=== PATIENT | male | born 1940 | race Caucasian/White ===

== ENCOUNTER 2017-06-15 09:34 | Inpatient (IN) ==
[2017-06-15 13:26] LABS: Basophils # 0.1 10*3/uL (0.0-0.2); Basophils % 0.4 % (0.0-0.8); Eosinophils # 0.2 10*3/uL (0.0-0.87); Eosinophils % 1.3 % (0.00-10.9); Hematocrit 52.6 VOL% (42.0-52.0); Hemoglobin 17.4 GM/DL (14.0-18.0); Immature Granulocytes Absolute 0.16 #; Lymphocytes # 3.4 10*3/uL (1.4-4.0); Lymphocytes % 21.3 % (21.2-54.2); Mean Corpuscular HGB Conc 33.1 GM/DL (32-36); Mean Corpuscular Hemoglobin 32 PG (27-34); Mean Corpuscular Volume 95.3 FL (87-102); Mean Platelet Volume 10.2 FL (9.6-12.0); Monocytes % 6.5 % (1.7-12.7); Neutrophils % 69.5 % (38.7-73.9); Platelet Count 235 T/CUMM (130-400); Red Blood Count 5.52 MC/CUMM (3.8-5.5); Red Cell Distribution Width 14.1 % (9.3-17.3); White Blood Count 15.9 T/CUMM (4-12)
[2017-06-15 13:35] LABS: INR 0.9; PT Patient Result 9.9 SECS; Partial Thromboplastin Time 24.6 SECS (0-40)
[2017-06-15 13:51] LABS: Albumin 3.7 G/DL (3.4-5.0); Bilirubin,Total 0.5 MG/DL (0.2-1.0); Calcium 8.7 MG/DL (8.5-10.1); Osmolality,Calculated 273.8 MOS/KG (273-304); Potassium 3.6 MMOL/L (3.5-5.1); Total Protein 7.3 G/DL (6.4-8.3)
[2017-06-15] MEDS ORDERED: NICOTINE 21 MG/24 HR PATCH TRANSDERM PRN (15:37)
[2017-06-15] MEDS ORDERED: ACETAMINOPHEN 325 MG TABLET PO PRN (15:37)
[2017-06-15] MEDS ORDERED: diphenhydrAMINE CAP 25 MG CAPSULE PO PRN (15:37)
[2017-06-15] MEDS ORDERED: ONDANSETRON 4 MG/2 ML VIAL IV PRN (15:37)
[2017-06-15] MEDS ORDERED: guaiFENesin/DM ER 600-30 MG TABLET PO PRN (15:37)
[2017-06-15] MEDS ORDERED: DOCUSATE SODIUM 100 MG CAPSULE PO PRN (15:37)
[2017-06-15] MEDS ORDERED: hydrALAZINE 20 MG/1 ML VIAL IV PRN (15:42)
[2017-06-15] MEDS ORDERED: traMADol 50 MG TABLET PO PRN ×2 (15:54)
[2017-06-15] MEDS ORDERED: IBUPROFEN 400 MG TABLET PO PRN (15:56)
[2017-06-15] MEDS ORDERED: IBUPROFEN 800 MG TABLET PO PRN (15:56)
[2017-06-15] MEDS ORDERED: ENOXAPARIN 40 MG/0.4 ML SYRINGE SUBCUT SCH (16:00)
[2017-06-15 16:12] LABS: Risk Ratio 4.66
[2017-06-15] MEDS ORDERED: LEVOFLOXACIN INJ 500 MG in PREMIX 1 EACH IV SCH (17:00)
[2017-06-15] MEDS: SODIUM CHLORIDE 0.9% 1,000 ML IV SCH (17:03)
[2017-06-15] MEDS: methylPREDNISolone SOD SUC 40 MG/1 ML VIAL IV SCH (17:04)
[2017-06-15] MEDS: PANTOPRAZOLE 40 MG TABLET PO SCH (17:07)
[2017-06-15] MEDS: amLODIPine 5 MG TABLET PO SCH (17:07)
[2017-06-15] MEDS: FINASTERIDE 5 MG TABLET PO SCH (17:08)
[2017-06-15 17:20] LABS: Apearance,Urine CLEAR (Clear); Bilirubin,Urine Negative (Negative); Blood, Urine Negative (Negative); Glucose,Urine (UA) Negative (Negative); Hyaline Casts,Urine 1 /LPF (0-3); Ketones,Urine Negative (Negative); Nitrite,Urine Negative (Negative); Protein,Urine Negative; RBC,Urine 1 /HPF (0-4); Urine Color Straw (Yellow); Urine Specific Gravity 1.034 (1.001-1.035); Urine Urobilinogen < 2.0 EU/DL (0.2-1.0); WBC,Urine <1 /HPF (0-6)
[2017-06-15 18:28] LABS: Troponin I Only 0.017 NG/ML (0.00-0.045)
[2017-06-15] MEDS: ALBUTEROL/IPRATROPIUM 3 ML NEB RESP TX SCH (20:16)
[2017-06-15 23:04] LABS: Troponin I Only 0.021 NG/ML (0.00-0.045)
[2017-06-16] MEDS: ALBUTEROL/IPRATROPIUM 3 ML NEB RESP TX SCH ×2 (00:04→07:12)
[2017-06-16 01:41] LABS: Basophils % 0.3 % (0.0-0.8); Hematocrit 48.2 VOL% (42.0-52.0); Hemoglobin 15.9 GM/DL (14.0-18.0); Immature Granulocytes % 1.2 %; Immature Granulocytes Absolute 0.12 #; Lymphocytes # 0.9 10*3/uL (1.4-4.0); Lymphocytes % 9.1 % (21.2-54.2); Mean Corpuscular Hemoglobin 31 PG (27-34); Mean Corpuscular Volume 94.9 FL (87-102); Mean Platelet Volume 10.8 FL (9.6-12.0); Monocytes # 0.1 10*3/uL (0.11-0.8); Monocytes % 0.8 % (1.7-12.7); Neutrophils # 8.8 10*3/uL (1.4-7.4); Neutrophils % 88.6 % (38.7-73.9); Platelet Count 196 T/CUMM (130-400); Red Blood Count 5.08 MC/CUMM (3.8-5.5); Red Cell Distribution Width 13.8 % (9.3-17.3); White Blood Count 9.9 T/CUMM (4-12)
[2017-06-16 02:16] LABS: Calcium 8.1 MG/DL (8.5-10.1); Osmolality,Calculated 286.7 MOS/KG (273-304); Potassium 4.1 MMOL/L (3.5-5.1)
[2017-06-16 02:19] LABS: Troponin I Only 0.021 NG/ML (0.00-0.045)
[2017-06-16] MEDS: SODIUM CHLORIDE 0.9% 1,000 ML IV SCH ×2 (04:23→08:50)
[2017-06-16] MEDS: methylPREDNISolone SOD SUC 40 MG/1 ML VIAL IV SCH (04:23)
[2017-06-16] MEDS: FINASTERIDE 5 MG TABLET PO SCH (08:23)
[2017-06-16] MEDS: PANTOPRAZOLE 40 MG TABLET PO SCH (08:23)
[2017-06-16] MEDS: amLODIPine 5 MG TABLET PO SCH (08:23)
[2017-06-16] MEDS ORDERED: amLODIPine 10 MG TABLET PO SCH ×2 (09:48→10:52)
[2017-06-16] MEDS ORDERED: CARVEDILOL 6.25 MG TABLET PO SCH (10:00)
[2017-06-16] MEDS ORDERED: CARVEDILOL 12.5 MG TABLET PO SCH (10:51)
[2017-06-16] MEDS ORDERED: ASPIRIN EC 81 MG TABLET PO SCH (11:00)
[2017-06-16] MEDS ORDERED: hydroCHLOROthiazide 12.5 MG CAPSULE PO SCH (11:00)
[2017-06-16 12:11] VITALS: BP 199/81
[2017-06-16] MEDS ORDERED: ROSUVASTATIN 20 MG TABLET PO SCH (21:00)
[2017-06-17] MEDS ORDERED: hydroCHLOROthiazide 12.5 MG CAPSULE PO SCH (09:00)
== END 2017-06-16 13:47 | disposition home or self-care (01) | DRG 202 ==
LOC: N.ED 09:34 → N.EDINP 15:08 → N.TELES 16:29
PROVIDERS: ADMIT Internal Medicine; ATTEND Internal Medicine

== ENCOUNTER 2017-10-13 15:41 | Observation (INO) ==
[2017-10-13] MEDS ORDERED: HEPARIN/NACL 0.9% 2 UNITS/ML 1,000 ML IV ONE (16:25)
[2017-10-13] MEDS ORDERED: MIDAZOLAM 2 MG/2 ML VIAL ONE (17:35)
[2017-10-13] MEDS ORDERED: HYDROmorphone 2 MG/1 ML VIAL ONE (17:35)
[2017-10-13] MEDS ORDERED: POTASSIUM CHLORIDE RIDER 10 MEQ in PREMIX 1 EACH IV PRN (17:37)
[2017-10-13] MEDS ORDERED: MAGNESIUM SULF RIDER 2 GM in PREMIX 1 EACH IV PRN (17:37)
[2017-10-13] MEDS ORDERED: DIAZEPAM 5 MG TABLET PO ONE (17:37)
[2017-10-13] MEDS ORDERED: diphenhydrAMINE CAP 25 MG CAPSULE PO ONE (17:37)
[2017-10-13 18:16] LABS: Basophils # 0.1 10*3/uL (0.0-0.2); Basophils % 0.6 % (0.0-0.8); Eosinophils # 0.3 10*3/uL (0.0-0.87); Eosinophils % 3.8 % (0.00-10.9); Hemoglobin 15.4 GM/DL (14.0-18.0); Immature Granulocytes % 0.5 %; Immature Granulocytes Absolute 0.04 #; Lymphocytes # 2.3 10*3/uL (1.4-4.0); Lymphocytes % 26.2 % (21.2-54.2); Mean Corpuscular HGB Conc 33.5 GM/DL (32-36); Mean Corpuscular Hemoglobin 31 PG (27-34); Mean Corpuscular Volume 93.5 FL (87-102); Mean Platelet Volume 10.7 FL (9.6-12.0); Monocytes # 0.6 10*3/uL (0.11-0.8); Monocytes % 7.2 % (1.7-12.7); Neutrophils # 5.4 10*3/uL (1.4-7.4); Neutrophils % 61.7 % (38.7-73.9); Platelet Count 200 T/CUMM (130-400); Red Blood Count 4.92 MC/CUMM (3.8-5.5); Red Cell Distribution Width 12.1 % (9.3-17.3); White Blood Count 8.7 T/CUMM (4-12)
[2017-10-13] MEDS ORDERED: ONDANSETRON 4 MG/2 ML VIAL IV PRN (18:32)
[2017-10-13] MEDS ORDERED: ZALEPLON 5 MG CAPSULE PO PRN (18:32)
[2017-10-13 18:38] LABS: Blood Urea Nitrogen 17 MG/DL (7-18); Calcium 8.3 MG/DL (8.5-10.1); Glucose 95 MG/DL (74-106); Osmolality,Calculated 278.5 MOS/KG (273-304); Potassium 3.5 MMOL/L (3.5-5.1); Sodium 139 MMOL/L (136-145); Troponin I Only < 0.015 NG/ML (0.00-0.045)
[2017-10-13] MEDS ORDERED: SODIUM CHLORIDE 0.9% 1,000 ML IV SCH (19:30)
[2017-10-13] MEDS ORDERED: ROSUVASTATIN 20 MG TABLET PO SCH (21:00)
[2017-10-13] MEDS: amLODIPine 5 MG TABLET PO SCH (21:44)
[2017-10-13] MEDS: CARVEDILOL 12.5 MG TABLET PO SCH (21:44)
[2017-10-13] MEDS: LOSARTAN 50 MG TABLET PO SCH (21:45)
[2017-10-14 07:53] VITALS: BP 152/67
[2017-10-14] MEDS ORDERED: FINASTERIDE 5 MG TABLET PO SCH (09:00)
[2017-10-14] MEDS: amLODIPine 5 MG TABLET PO SCH (09:14)
[2017-10-14] MEDS: LOSARTAN 50 MG TABLET PO SCH (09:14)
[2017-10-14] MEDS: CARVEDILOL 12.5 MG TABLET PO SCH (09:15)
== END 2017-10-14 10:57 | disposition home or self-care (01) ==
LOC: INTOOBSV 15:41 → N.TELES 15:41 → N.CL 15:41 → EDSTATUS 10-14 09:14
PROVIDERS: ADMIT Internal Medicine Cardiovascular Disease; ATTEND Internal Medicine Cardiovascular Disease
PROC: CLCCHCL (ICD-10-PCS; 2017-10-13 17:15)

== ENCOUNTER 2022-02-17 11:48 | Observation (INO) ==
[2022-02-17 12:21] LABS: Basophils % 0.4 % (0.0-0.8); Eosinophils # 0.4 10*3/uL (0.0-0.87); Hematocrit 51.8 VOL% (42.0-52.0); Immature Granulocytes % 0.6 %; Immature Granulocytes Absolute 0.06 #; Lymphocytes # 2.5 10*3/uL (1.4-4.0); Lymphocytes % 24.2 % (21.2-54.2); Mean Corpuscular HGB Conc 32.8 GM/DL (32-36); Mean Corpuscular Volume 96.8 FL (87-102); Mean Platelet Volume 9.7 FL (9.6-12.0); Monocytes # 0.7 10*3/uL (0.11-0.8); Monocytes % 6.4 % (1.7-12.7); Neutrophils % 64.4 % (38.7-73.9); Platelet Count 223 T/CUMM (130-400); Red Blood Count 5.35 MC/CUMM (3.8-5.5); Red Cell Distribution Width 12.6 % (9.3-17.3); White Blood Count 10.3 T/CUMM (4-12)
[2022-02-17 12:30] LABS: PT Patient Result 10.9 SECS (10.1-12.1)
[2022-02-17 12:45] LABS: Albumin 3.9 G/DL (3.4-5.0); Bilirubin,Total 0.6 MG/DL (0.20-1.00); Calcium 9.4 MG/DL (8.5-10.1); Osmolality,Calculated 274.8 MOS/KG (273-304); Potassium 4.3 MMOL/L (3.5-5.1); Total Protein 7.4 G/DL (6.4-8.2)
[2022-02-17] MEDS ORDERED: ALBUTEROL 2.5 MG/3 ML NEB RESP TX STA (13:59)
[2022-02-17] MEDS ORDERED: methylPREDNISolone SOD SUC 125 MG/2 ML VIAL IV STA (16:31)
[2022-02-17] MEDS ORDERED: DEXTROSE 10% 250 ML BAG IV PRN (17:22)
[2022-02-17] MEDS ORDERED: ONDANSETRON 4 MG/2 ML VIAL IV PRN (17:22)
[2022-02-17] MEDS ORDERED: ACETAMINOPHEN 325 MG TABLET PO PRN (17:22)
[2022-02-17] MEDS ORDERED: GLUCAGON 1 MG VIAL IM PRN (17:22)
[2022-02-17] MEDS: ALBUTEROL/IPRATROPIUM 3 ML NEB RESP TX SCH (20:20)
[2022-02-17] MEDS ORDERED: DOXAZOSIN 1 MG TABLET PO SCH (21:00)
[2022-02-17] MEDS ORDERED: FINASTERIDE 5 MG TABLET PO SCH (21:00)
[2022-02-17] MEDS ORDERED: ACETAMINOPHEN 500 MG TABLET PO SCH (21:00)
[2022-02-17] MEDS ORDERED: carvediloL 25 MG TABLET PO SCH (21:00)
[2022-02-17] MEDS ORDERED: ENOXAPARIN 40 MG/0.4 ML SYRINGE SUBCUT SCH (21:00)
[2022-02-17] MEDS: MULTIVITAMIN (OCUVITE) TABLET PO SCH (21:10)
[2022-02-17] MEDS: NICOTINE 14 MG/24 HR PATCH TRANSDERM SCH (21:17)
[2022-02-17] MEDS: buPROPion SR 100 MG TABLET PO SCH (21:47)
[2022-02-18] MEDS: ALBUTEROL/IPRATROPIUM 3 ML NEB RESP TX SCH ×3 (01:20→13:40)
[2022-02-18 04:58] LABS: Basophils % 0.1 % (0.0-0.8); Hematocrit 51.4 VOL% (42.0-52.0); Hemoglobin 16.8 GM/DL (14.0-18.0); Immature Granulocytes % 0.7 %; Immature Granulocytes Absolute 0.07 #; Lymphocytes # 1.1 10*3/uL (1.4-4.0); Lymphocytes % 10.9 % (21.2-54.2); Mean Corpuscular HGB Conc 32.7 GM/DL (32-36); Mean Corpuscular Volume 96.1 FL (87-102); Mean Platelet Volume 10.1 FL (9.6-12.0); Monocytes # 0.1 10*3/uL (0.11-0.8); Monocytes % 1.1 % (1.7-12.7); Neutrophils % 87.2 % (38.7-73.9); Platelet Count 217 T/CUMM (130-400); Red Blood Count 5.35 MC/CUMM (3.8-5.5); Red Cell Distribution Width 12.3 % (9.3-17.3); White Blood Count 10.5 T/CUMM (4-12)
[2022-02-18 05:24] LABS: Albumin 3.5 G/DL (3.4-5.0); Bilirubin,Total 0.4 MG/DL (0.20-1.00); Calcium 9.1 MG/DL (8.5-10.1); Osmolality,Calculated 277.1 MOS/KG (273-304); Potassium 4.4 MMOL/L (3.5-5.1); Total Protein 7.1 G/DL (6.4-8.2)
[2022-02-18] MEDS ORDERED: DOXAZOSIN 4 MG TABLET PO SCH (08:00)
[2022-02-18] MEDS ORDERED: carvediloL 25 MG TABLET PO SCH (08:00)
[2022-02-18] MEDS ORDERED: CLOPIDOGREL 75 MG TABLET PO SCH (09:00)
[2022-02-18] MEDS ORDERED: PANTOPRAZOLE 40 MG TABLET PO SCH (09:00)
[2022-02-18] MEDS ORDERED: DOXAZOSIN 1 MG TABLET PO SCH (09:00)
[2022-02-18] MEDS ORDERED: ROSUVASTATIN 10 MG TABLET PO SCH (09:00)
[2022-02-18] MEDS ORDERED: guaiFENesin/DM ER 600-30 MG TABLET PO SCH (09:00)
[2022-02-18] MEDS ORDERED: methylPREDNISolone SOD SUC 40 MG/1 ML VIAL IV SCH (09:00)
[2022-02-18] MEDS ORDERED: VALSARTAN 160 MG TABLET PO SCH (09:00)
[2022-02-18] MEDS: MULTIVITAMIN (OCUVITE) TABLET PO SCH (09:06)
[2022-02-18] MEDS: buPROPion SR 100 MG TABLET PO SCH (09:06)
[2022-02-18] MEDS: NICOTINE 14 MG/24 HR PATCH TRANSDERM SCH (09:08)
[2022-02-18 13:20] VITALS: BP 138/54
== END 2022-02-18 15:05 | disposition home or self-care (01) ==
LOC: N.EDINP 11:48 → N.ED 11:48 → N.3E 17:44
PROVIDERS: ADMIT Internal Medicine; ATTEND Internal Medicine